=== PATIENT | male | born 1955 | race Caucasian/White ===

== ENCOUNTER 2025-02-11 09:28 | Observation (INO) ==
--- NOTE | 2025-02-03 10:01 | Anesthesiology Consultation ---
Date of Service February 03, 2025 Assessment & Plan (1) Encounter for pre-operative examination: - Infectious disease screening: Per assessment on 02/03/25- No known recent infectious disease contacts or current infectious disease symptoms. - Elevated creatinine: Most recent creatinine level was 1.61 on 01/13/25. Comparison labs from 12/22/24 with creatinine at 1.24. Elevated creatinine in setting of obstructive uropathy- Will update BMP DOS to reassess/trend. - Patient acceptable risk for given surgery pending evaluation DOS. Chart Review Chart Review: Patient NOT seen in Pre Admission Testing History Surgery Operation Date: 02/11/25 11:55 Proposed Procedures p TURP (Transurethral Resection Prostate), Transrectal Ultrasound of Prostate, Prostate Needle Biopsy - Gama Aquino, Height/Weight Height: 5 ft 8 in Weight: 80.286 kg Allergies Allergy/AdvReac Type Severity Reaction Status Date / Time No Known Allergies Allergy Verified 01/07/25 09:33 Medications Home Medications Medication Instructions Recorded Confirmed Last Taken cranberry fruit 1 tab PO DAILY 12/25/24 02/03/25 Unknown super beta prostate 1 tab PO DAILY 12/25/24 02/03/25 Unknown tamsulosin 0.4 mg capsule 0.4 mg PO HS #30 caps 01/06/25 02/03/25 Unknown finasteride 5 mg tablet 5 mg PO DAILY #30 tabs 02/02/25 02/03/25 Unknown tamsulosin 0.4 mg capsule 0.4 mg PO DAILY #30 caps 02/02/25 02/03/25 Unknown Past Medical History Medical History Enlarged prostate with urinary retention Morales catheter in place History of COVID-19 (2021) Resolved Hx of concussion 2003 Inguinal hernia right Past Family History Family History Denies family history of Ovarian cancer Prostate cancer Breast cancer Colorectal cancer Past Surgical History Surgical History No significant past surgical history Social History Smoking Status: Never smoker Do You Dip or Chew Tobacco: No Hx Alcohol Use: No Hx Substance Use: No substance use type: does not use Lab Results Anesthesia Preop Results Results Anesthesia Widget: WBC 6.90 K/ul (4.8-10.8) 01/13/25 Hgb 14.0 g/dl (14.0-18.0) 01/13/25 Hct 41.3 % (42.0-52.0) L 01/13/25 Plt 269 K/uL (130-400) 01/13/25 Na 137 mmol/L (136-145) 01/13/25 K 4.4 mmol/L (3.5-5.1) 01/13/25 Cl 106 mmol/L (98-107) 01/13/25 CO2 26 mmol/L (21-32) 01/13/25 BUN 13 mg/dl (6-23) 01/13/25 Creat 1.61 mg/dl (0.6-1.4) H 01/13/25 Glucose Level 93 mg/dl (70-99(Fasting)) 01/13/25 Urine Color Yellow 12/22/24 Urine Appearance Clear (Clear) 12/22/24 Urine pH 5.5 (4.5-7.5) 12/22/24 Urine Specific [place] 1.011 (1.000-1.030) 12/22/24 Urine Protein Negative (Negative) 12/22/24 Urine Glucose (UA) Negative (Negative) 12/22/24 Urine Ketones Negative (Negative) 12/22/24 Urine Blood 2+ (Negative) H 12/22/24 Urine Nitrite Negative (Negative) 12/22/24 Urine Bilirubin Negative (Negative) 12/22/24 Urine Urobilinogen Negative (Negative) 12/22/24 Urine Leukocyte Esterase Negative (Negative) 12/22/24 Urine WBC (Auto) 0-5 /hpf (0-5) 12/22/24 Urine RBC (Auto) >20 /hpf (0-2) H 12/22/24 Urine Hyaline Casts (Auto) 3-5 /lpf (0-2) H 12/22/24 Urine Epithelial Cells (Auto) 0-2 /hpf (0-2) 12/22/24 Urine Bacteria (Auto) 2+ (None Seen) H 12/22/24 Testing Laboratory Results Urine culture (02/02/25): Pending Electrocardiogram Date: 12/22/24 SR with first degree AVB at 79bpm. RBBB. Chest X-Ray Date: 04/01/25 Cardiac silhouette is enlarged in size. Mildly tortuous thoracic aorta may be seen with systemic hypertension. No focal consolidation identified. Mild pulm onary vascular congestion. No significant pleural fluid. No discernible pneumothorax.
[2025-02-11 10:15] LABS: BUN Creatinine Ratio 12.6 (10-20); Calcium 9.8 mg/dl (8.6-10.3); Creatinine Clr Calc Pharmacy 59.1 ml/min; Potassium 4.1 mmol/L (3.5-5.1)
--- NOTE | 2025-02-11 10:25 | History & Physical Bridge Note ---
Date of Service February 11, 2025 History & Physical Bridge Note I have examined the patient, reviewed the History & Physical and in the interval since the performance of the History & Physical I have noted the following changes of clinical significance: no changes noted
--- NOTE | 2025-02-11 13:50 | Operative Report ---
[facility] Post Operative Report Pre & Post Diagnosis Operation Date: 02/11/25 10:45 Pre-Op Diagnosis: Benign Prostatic Hyperplasia Post-Op Diagnosis: Benign Prostatic Hyperplasia I identified the patient and participated in the time-out.: Yes Procedure Operation Date: 02/11/25 10:45 Actual Procedures Transurethral Resection Prostate, Transurethral resection of bladder tumor, large Fulguration of bleeding prostatic varicosities. Transrectal Ultrasound of Prostate, Prostate Needle Biopsy x 16 - Gama Aquino DO Surgeon Gama Aquino, II, DO Tile Molder None Estimated Blood Loss 10 Findings Consistent with Post-Op Diagnosis Massive Prostate with obstruction. Very large nodular like mass coming from the anterior bladder neck/left lateral lobe of prostate with severe edematous changes of the tissue. Irregular tissue with significant inflammation on resection. Possible pockets of necrosis vs abscess. Mass measures approx 6.4 cm in size. Projected into bladder with significant portion within the lumen. Very large prostatic varicosities. Numerous areas of bleeding. Prostate volume after resection 165.72 cc on U/s Specimens Prostate adenoma. Bladder neck mass Prostate biopsy x 16: Right and Left - Base, Mid, lateral, and apex x 2 Drains 22Fr Catheter Anesthesia Type General Complications none Disposition Disposition: Recovery Room Indications Patient with obstruction due to prostate enlargement. Risks and benefits discussed at length. Description of Procedure Patient was consented and brought back to the operating room. Patient was placed under anesthesia in the supine position and moved to the dorsal lithotomy position. Patient was prepped and draped in the regular sterile fashion. A time out was completed. A 30degree Cystoscope was placed into the bladder and the entire bladder was examined. The patient's prostate was found to be severely enlarged. There was a large masslike structure projecting off the anterior portion of the bladder neck appeared to possibly be involving the left lateral lobe of the prostate. The mass appeared very vascular with severe edematous changes and a large nodular component. It appeared to take up a significant portion of the bladder lumen. The bladder neck was severely elevated. The UO's were identified as well as the bladder neck, trigone, dome, and the other important landmarks. The prostatic urethra and large lobes/adenoma was assessed and the veru and bladder neck identified and area/size was assessed. The lateral lobes and median lobe of the prostate were found to be severely enlarged. There were numerous areas of bleeding varicosities in the prostatic urethra and the bladder neck and within the bladder. The bleeding varicosities were fulgurated. Due to the extremely large size of the prostate the large masslike structure at the anterior portion of the bladder was difficult to access. It was also difficult to determine if it was a continuation of the prostatic tissue projecting into the bladder versus a true mass of the bladder neck or bladder. The resection scope was placed and the fine bipolar loop was selected. Starting at the 5 and 7 o'clock positions, a channel was created from bladder neck to the veru. The channel was then fully resected. With resection of the median lobe the base of the bladder was much more easily visualized. The ureteral orifice on each side was able to be identified. Urine was seen draining from each of the areas. The prostate on the left lateral lobe was further assessed. An extremely large masslike structure was appreciated in close proximity to the extremely large left lateral lobe. They did appear to be possibly separate areas. In order to better assess and to access the mass the left lateral lobe was then resected. This was resected down to capsule fibers. An extensive amount of tissue was resected. Starting at the 1 o'clock position and traveling down to the channel. After extensive resection and fulguration of areas of bleeding and cauterization, Specimen was removed and sent for analysis. The resection bed a nd any bleeding areas were fulgurated/cauterized and the entire area inspected. All bleeding was controlled. With the significant reduction of the left lateral lobe and median lobe visualization within the bladder as well as of the mass was much better. The large nodular masslike structure was able to be accessed with the resection of the left lateral lobe. The fine bipolar loop was then utilized to resect the mass down to the base. There was a somewhat pedunculated area which was able to be resected down to. The bladder neck tissue was resected to fully remove the masslike structure. A major portion of this tissue had been projected into the bladder causing considerable decreased in volume. This tissue was then sent separately for pathologic analysis as bladder neck mass. The tissue did appear to be severely inflamed there was severe edematous changes on the surface and the internal tissue had pockets of fluid and debris possibly necrosis versus abscess. All bleeding was then controlled. Multiple additional areas of prostatic varicosities were fulgurated. With the resection of the mass additional ones were also discovered that were fulgurated. The bladder was inspected a final time. The bladder was emptied and irrigated. All specimen and debris was removed. The scope was removed with the bladder partially full. A catheter was placed and balloon elevated. This was easily irrigated. This was connected to the bag and set to drainage. Attention then went to the transrectal ultrasound and prostate needle biopsy. Preparation: The patient was prepped and draped in the usual sterile fashion, a 6mHz GE transrectal probe, lubricated with Surgilube, was gently placed within the rectal vault and positioned adjacent to the prostate Transrectal Sonography Transrectal Prostate Biopsy with Ultrasound: Core biopsies take from the right side of the prostate: 8 Core biopsies taken from the left side of the prostate: 8 Locations: Left, Right, Base, Mid and [place] Total number of biopsies: 16 Hypoechoic Lesion(s) Hypoechoic Lesion(s): None Calcification(s) Calcification(s): None Prostate Capsule Prostate Capsule: Intact Contour: smooth, mildly asymmetric likely secondary to resection Seminal Vesicles Seminal Vesicles: Normal Estimated Prostate Weight (grams): 165.72 cc PSA Value: PSA (NG/ML) 46.32 ANGELI: severely enlarged and boggy No palpable nodules or masses. Patient Status: Tolerated Well and Vital Signs Stable Complications: No Complications As the prostate had been resected there was a notable asymmetry with considerably more tissue on the right side even with the significant reduction in prostate volume the prostate still measured over 165 cc as mentioned above. The patient was cleaned, aroused from anesthesia, and transferred to the pacu in stable condition having tolerated the procedure well with no complications. I was present and participated in all aspects of the procedure. The patient will be monitored in the PACU until transferred. Plan to observe the patient overnight with continuous bladder irrigation. Will likely need catheter for approximately 10 to 14 days. Will discuss pathology at follow-up. I attest to the content of the Intraoperative Record and any orders documented therein. Any exceptions are noted below.
[2025-02-11 14:54] LABS: Hematocrit (blood only) 40.4 % (42.0-52.0); Hemoglobin 13.9 g/dl (14.0-18.0); Mean Corpuscular Hemoglobin 30.2 pg (25.0-34.0); Mean Corpuscular Hgb Conc 34.4 g/dL (32.0-36.0); Mean Corpuscular Volume 87.6 fL (80.0-100.0); Mean Platelet Volume 8.8 fL (9.4-12.4); Platelet Count 214 K/uL (130-400); RDW Coefficient of Variation 12.8 % (11.5-14.5); RDW Standard Deviation 41.1 fL (36.4-46.3); Red Blood Count 4.61 M/uL (4.70-6.10); White Blood Count 10.66 K/ul (4.8-10.8)
[2025-02-11 15:09] LABS: Albumin Globulin Ratio 1.4 (0.9-2); Albumin Level 3.7 gm/dl (3.4-5.0); BUN Creatinine Ratio 11.8 (10-20); Bilirubin,Total 0.5 mg/dl (0.2-1.0); Calcium 9.1 mg/dl (8.6-10.3); Creatinine Clr Calc Pharmacy 64.3 ml/min; Globulin 2.7 gm/dl (2.5-4.0); Potassium 4.6 mmol/L (3.5-5.1); Total Protein 6.4 gm/dl (6.0-8.3)
--- NOTE | 2025-02-11 15:10 | Anesthesiology Progress Note ---
Date of Service February 11, 2025 Anesthesia Post Procedure Vital Signs Vital Signs: Temp Pulse Pulse Resp BP Pulse Ox O2 Del Method 02/11/25 14:49 36.4 C L 79 18 157/82 H 96 Room Air 02/11/25 14:40 78 12 138/83 96 Room Air 02/11/25 14:30 36.4 C L 80 13 138/88 95 Room Air 02/11/25 14:20 36.4 C L 77 12 138/90 94 Room Air 02/11/25 14:10 78 12 142/86 H 94 Room Air 02/11/25 14:00 78 14 138/94 99 Oxymask 02/11/25 13:50 73 12 144/84 H 99 Oxymask 02/11/25 13:40 36.0 C L 76 12 131/84 98 Oxymask 02/11/25 10:01 36.7 C 88 18 173/87 H 97 Room Air O2 Flow Rate 02/11/25 14:49 02/11/25 14:40 0 02/11/25 14:30 0 02/11/25 14:20 0 02/11/25 14:10 0 02/11/25 14:00 4 02/11/25 13:50 8 02/11/25 13:40 8 02/11/25 10:01 Pain Intensity Penis: Pain Intensity: 3 Transfer of Care Handoff Completed per policy Notes Mental Status: alert / awake / arousable Patient Amnestic to Procedure: Yes Nausea / Vomiting: adequately controlled Pain: adequately controlled Airway Patency, RR, SpO2: stable & adequate BP & HR: stable & adequate Hydration State: stable & adequate Anesthetic Complications: no major complications apparent
[2025-02-11 15:27] LABS: Anisocytosis Present; Basophils # (auto) 0.03 K/uL (0.00-0.20); Basophils % (auto) 0.3 %; Eosinophils # (auto) 0.04 K/uL (0.00-0.50); Eosinophils % (auto) 0.4 %; Immature Granulocytes # (auto) 0.04 K/uL (0.01-0.20); Immature Granulocytes % (auto) 0.4 %; Lymphocytes # (auto) 0.49 K/uL (1.20-3.40); Lymphocytes % (auto) 4.6 %; Monocytes # (auto) 0.14 K/uL (0.11-0.59); Monocytes % (auto) 1.3 %; Neutrophils # (auto) 9.92 K/uL (1.40-6.50); Polychromasia 1+
[2025-02-12 08:05] VITALS: BP 127/68; PULSE 82; RESP 18; TEMP 97.8; O2SAT 99
[2025-02-12 08:28] LABS: Hematocrit (blood only) 40.6 % (42.0-52.0); Hemoglobin 14.1 g/dl (14.0-18.0); Mean Corpuscular Hemoglobin 31.3 pg (25.0-34.0); Mean Corpuscular Hgb Conc 34.7 g/dL (32.0-36.0); Mean Platelet Volume 8.8 fL (9.4-12.4); Platelet Count 275 K/uL (130-400); RDW Coefficient of Variation 13.1 % (11.5-14.5); Red Blood Count 4.51 M/uL (4.70-6.10); White Blood Count 12.96 K/ul (4.8-10.8)
[2025-02-12 08:53] LABS: Albumin Globulin Ratio 1.3 (0.9-2); Albumin Level 3.8 gm/dl (3.4-5.0); BUN Creatinine Ratio 11.5 (10-20); Bilirubin,Total 0.6 mg/dl (0.2-1.0); Calcium 9.5 mg/dl (8.6-10.3); Creatinine Clr Calc Pharmacy 53.7 ml/min; Globulin 2.9 gm/dl (2.5-4.0); Potassium 4.3 mmol/L (3.5-5.1); Total Protein 6.7 gm/dl (6.0-8.3)
--- NOTE | 2025-02-12 09:25 | Urology Progress Note ---
Date of Service February 12, 2025 Assessment & Plan (1) Enlarged prostate: Plan: - Pt POD#1 s/p TURP with Dr. Aquino - Doing well, progressing as expected - Afebrile, lab work reviewed - creatinine 1.22, WBC 12.96, Hgb 14.1 - Tolerating PO diet - 3 way Morales catheter intact, patent and draining pink urine with CBI currently clamped - CBI clamped @8, nursing aware - will reassess later this AM - Maintain Morales catheter - Anticipate home with Morales catheter later today presuming urine appropriate and he continues to progress as expected - Expected clinical course reviewed, all questions answered - Will arrange outpatient follow-up with our service for voiding trial Admission and Anticipated Discharge Date Admission Date: February 11, 2025 Subjective Patient resting comfortably in bed Denies fevers, chills, nausea, vomiting Denies pain No acute urological concerns overnight Review of Systems Constitutional: as per Subjective / HPI Genitourinary: + as per Subjective / HPI Physical Exam Constitutional: well developed and well nourished; no acute distress Respiratory: normal respiratory effort and able to speak in complete sentences Musculoskeletal: Extremities: extremities normal to inspection Psychiatric: Orientation: alert and oriented x 3 Genitourinary: Catheter draining pink urine with small clots, CBI clamped Results & Data Vital Signs (Past 12 Hours) Vital Signs Temp Pulse Resp BP Pulse Ox O2 Del Method 02/12/25 08:04 36.6 C 82 18 127/68 99 Room Air 02/12/25 03:00 36.7 C 86 16 131/78 97 Room Air 02/11/25 23:00 36.4 C L 85 16 151/86 H 97 Room Air PG Care Time/CCT Total # of Minutes Spent Total Time Spent with Patient: Total time spent is greater than 50% in coordination of care (as documented) at patient's floor/unit and/or counseling patient: Coding Level of Care Code 78761 SUB INP/OBS CARE 2/35MIN Diagnoses Enlarged prostate N40.0
--- NOTE | 2025-02-12 12:26 | Discharge Summary ---
Date of Service February 12, 2025 Admission HPI Per Admitting Provider Patient seen in the urology office on 02/01/2025 to finalize workup for urologic issues. Had issues with emptying and developed retention. Had catheter in place. In past had minor to moderate LUTS with bother and irritation. Rare discomfort. Some urgency and frequency. Tolerated catheter. No new, concerning, or severe episodes. No recent signs of infection, bleeding, or fevers. Cystoscopy was completed at this appointment. Admission Exam Per Admitting Provider General: Alert in no acute distress. HEENT: Normocephalic Atraumatic. Inspection normal. Psychologic: Normal affect. Respiratory: Nonlabored. Cardiovascular: No tachycardia Skin: Wray and Dry. Principal Diagnosis BPH with LUTS Discharge Exam Constitutional well developed and well nourished; no acute distress Respiratory normal respiratory effort and able to speak in complete sentences Musculoskeletal Extremities: extremities normal to inspection Psychiatric Orientation: alert and oriented x 3 Genitourinary Catheter draining pink urine with small clots, CBI clamped Discharge Data Allergies Allergy/AdvReac Type Severity Reaction Status Date / Time No Known Allergies Allergy Verified 02/11/25 09:57 Procedures Performed Operation Date: 02/11/25 10:45 Actual Procedures p Transurethral Resection Prostate, Prostate Needle Biopsy, (Not Applicable) - DO ari Lakhani Transurethral Resection of Bladder Tumor(Not Applicable) - DO ari Lakhani Transrectal Ultrasound of Prostate,(Not Applicable) - Gama Aquino DO Ordered Studies Pathology pending Hospital Course (1) Enlarged prostate: 70-year-old male who is admitted for postop TURP, TURBT, transrectal ultrasound of the prostate. This morning he underwent CBI which was weaned to pink urine. He was appropriate for discharge after CBI was clamped. He will be discharged with a catheter. Total Time Total Time Spent Total Time Spent (In Minutes): 15 Discharge Plan Discharge Items Patient Disposition: Home - Self-Care Reason For Visit: Benign Prostatic Hyperplasia with Lower Urinary Tr Discharge Diagnosis: BPH with LUTS Activity: Per Instructions section Lifting: Wait until after follow-up appointment Bathing: No limitations Sexual Activity: Wait until after follow-up appointment Exercise/Sports: Wait until after follow-up appointment Driving/Machine Use: not when using narcotics Weightbearing: Full weightbearing Non-emergency contact: Primary Care Provider and Urologist Call non-emergency contact if: your pain is not controlled and your temperature is above 101 Follow-up/Referrals: Jameson Zendejas MD [Primary Care Provider] - Gama Aquino DO [Physician] - Diet: Regular Addtl Attending Provider Instructions: Please take all medications as prescribed and keep all follow-ups as scheduled. Please call our office at [phone] with any questions, concerns or need to reschedule appointments for any reason. We are happy to assist you. Tips for your recovery at home: Dont be alarmed by brownish or reddish blood or clots in your urine. This is a result of the procedure. This may occur off and on for weeks to months after the procedure but should continue to improve. Drink plenty of fluids during the day (enough to keep your urine very light colored). This will help keep a healthy flow of urine. Do not lift >25 lbs until your followup Avoid constipation. Please use a stool softener (Colace) for the first two weeks after your procedure Be sure to finish the antibiotics as prescribed. For the catheter, please wash tubing where it enters your body twice daily with mild soap (Dove or Dial). Once your catheter is removed, expect some blood in your urine and some burning when you urinate. You should have an appointment to have this removed, if you do not please call our office to arrange. When to call [facility] at [phone]: Your urine contains heavy blood clots You are constantly leaking urine Fever of 101F or higher, chills, nausea, or vomiting Your pain is not relieved with medication Pending Studies at Discharge: Yes Studies:: Pathology Stand-Alone [facility]: [facility] Sm[facility] Cess[facility] Medications and DC Order Prescriptions: New ciprofloxacin HCl [Cipro] 500 mg tablet 500 mg PO Q12H Qty: 20 0RF Continued super beta prostate 1 tab PO DAILY cranberry fruit 1 tab PO DAILY finasteride 5 mg tablet 5 mg PO DAILY Qty: 30 11RF tamsulosin 0.4 mg capsule 0.4 mg PO HS Qty: 30 2RF Discontinued doxycycline hyclate 100 mg capsule 100 mg PO BID 10 Days Qty: 20 0RF tamsulosin 0.4 mg capsule 0.4 mg PO DAILY Qty: 30 11RF Discharge Orders: Discharge Order (Routine); Ordered 02/12/25 Ordered By: Cheryle Fenton Admission Data Admit Date/Time: 02/11/25 11:13 Attending Provider: Gama Aquino Admit Provider: Gama Aquino Primary Care Provider: Jameson Zendejas Other Interventions: Discharge Summary Assessment (RN) Last Done: 02/12/25 10:15 Coding Level of Care Code 35685 IN/OBS DISCH 30 MIN/LESS Diagnoses Enlarged prostate N40.0
== END 2025-02-12 13:30 | disposition home or self-care (01) ==
LOC: ASU 09:28 → 3E 09:28